=== PATIENT | female | born 1995 | race Caucasian/White ===

== ENCOUNTER 2018-01-04 07:36 | Emergency (ER) | END 2018-01-04 09:29 | disposition home or self-care (01) ==

== ENCOUNTER 2018-07-27 19:03 | Emergency (ER) | payer OTHER ==
[~2018-07-27] VITALS: Wt 81.3 kg
[~2018-07-27 19:03] MED LIST: AMOX1TAB9 PO; AZIT250T PO; CETI10TA34 PO; ERYT1OIN6 BOTH EYES; FLUT9.9S NASAL; GUAI5SYR2 PO; IBUP-1542 PO; PSEU120T12 PO
--- NOTE | 2018-07-27 20:39 | ERD ---
ER Documentation Chief Complaint Chief Complaint stuffy nose, chills, fever since last PM. tylenol 1300 HPI 23-year-old female with no significant past medical history presenting to the emergency department complaining of sore throat, nasal congestion and fever which began yesterday and is intermittent. She took Tylenol at home last at 1300 today with some relief. Symptoms are moderate to severe. Throat pain is worse when swallowing food or drinks. She reports history of throat infection in the past. She denies any sick contacts or abdominal pain or cough or other symptoms at this time. ROS All systems reviewed and are negative except as per history of present illness. Medications Home Meds Active Scripts Fluticasone Propionate (Flonase Allergy Relief) 9.9 Ml [place].susp, 1 SPRAY NASAL BID, #1 BOTTLE TO EACH NOSTRIL Prov:ADAMA MORRIS PA-C 01/04/18 Pseudoephedrine Hcl (Sudafed 12 Hour) 120 Mg Tablet.sa, 120 MG PO BID for 5 Days Prov:ADAMA MORRIS PA-C 01/04/18 Cetirizine Hcl* (Cetirizine Hcl*) 10 Mg Tab.chew, 10 MG PO DAILY, #30 TAB Prov:ADAMA MORRIS PA-C 01/04/18 Erythromycin Base (Erythromycin) 1 Gm Oint...g., 1 APPLIC BOTH EYES QID for 7 Days Prov:ADAMA MORRIS PA-C 01/04/18 Amoxicillin/Potassium Clav (Amox-Clav 500-125 mg Tablet) 500-125 mg Tab, 1 TAB PO BID for 14 Days, TAB Prov:ADAMA MORRIS PA-C 01/04/18 Guaifenesin-Dextromethorphan* (Robitussin* DM) 100MG/10MG/5ML Syrup, 10 ML PO Q6H PRN for COUGH for 5 Days, ML Prov:SANDRA GREENWOOD NP 04/03/15 Azithromycin* (Zithromax*) 250 Mg Tablet, 250 MG PO .MariPACK DIRECTED, #6 TAB TAKE 500 MG (2 TABS) THE FIRST DAY THEN 250 MG (1 TAB) DAYS 2-5 Prov:SANDRA GREENWOOD NP 2/3/16 Ibuprofen* (Motrin*) 600 Mg Tab, 600 MG PO Q6, #30 TAB Prov:DOC VEGA 03/05/15 Allergies Allergies: Coded Allergies: No Known Drug Allergies (Verified Allergy, 05/07/13) PMhx/Soc History of Surgery: No Anesthesia Reaction: No Hx Neurological Disorder: No Hx Respiratory Disorders: Yes (asthma) Hx Cardiac Disorders: No Hx Psychiatric Problems: No Hx Miscellaneous Medical Probl: No Hx Alcohol Use: No Hx Substance Use: No Hx Tobacco Use: No Smoking Status: Never smoker FmHx Family History: No diabetes Physical Exam Vitals Vital Signs Date Temp Pulse Resp B/P (MAP) Pulse Ox O2 O2 Flow FiO2 Time Delivery Rate 07/27/18 100.3 100 20 127/88 99 19:26 (101) Physical Exam Const: No acute distress Head: Atraumatic Eyes: Normal Conjunctiva ENT: Normal External Ears, Nose and Mouth. Bilateral tonsillar hypertrophy. Uvula is midline. Scant exudate noted to the right tonsil. Nares are congested. Tympanic membranes are normal in appearance bilaterally. Neck: Full range of motion. No meningismus. Resp: Clear to auscultation bilaterally Cardio: Regular rate and rhythm, no murmurs Skin: No petechiae or rashes Ext: No cyanosis, or edema Neur: Awake and alert Psych: Normal Mood and Affect Procedures/MDM 23-year-old female presenting to the emergency department with signs and symptoms consistent with pharyngitis, likely bacterial etiology. No evidence to suggest peritonsillar abscess, sepsis, meningitis, or other emergencies. Patient is nontoxic and well-appearing and she is stable and appropriate for discharge and further outpatient management with prescriptions. She was advised to have close follow-up with her primary care physician and return to the department immediately for any new or worsening or concerning symptoms. Patient was in agreement with the diagnosis, plan, need for follow-up, return precautions. All questions and concerns were addressed prior to discharge. Departure Diagnosis: Primary Impression: Acute pharyngitis Pharyngitis/tonsillitis etiology: unspecified etiology Qualified Codes: J02.9 - Acute pharyngitis, unspecified Condition: Fair Patient Instructions: Pharyngitis, Strep (Presumed) Referrals: [facility] Additional Instructions: Follow up with your PCP within the next 1-3 days for a repeat evaluation. If you require a referral to a specialist, your Primary Care Provider may be able to provide this for you. In most patient cases, a referral is not required. If you have further questions regarding this matter, please ask your Primary Care Prov ider. Return the the emergency department immediately if symptoms worsen or change. If you have any questions regarding medications, ask your pharmacist or us before you leave. If any adverse reactions, occur while taking your medications, discontinue the treatment and return to the emergency department immediately. If any new or worsening symptoms, uncontrolled fevers, or other unexplained symptoms occur, return to the emergency department immediately. Take your medications as directed, and complete the entire course of treatment. ANGELIQUE ATWOOD PA-C July 27, 2018 20:39
[2018-07-27] MEDS ORDERED: FLUT9.9S NASAL (20:41)
[2018-07-27] MEDS ORDERED: PHEN177S43 MT (20:41)
[2018-07-27] MEDS ORDERED: IBUP-1542 PO (20:41)
[2018-07-27] MEDS ORDERED: AMOX500C2 PO (20:41)
[2018-07-27 21:10] VITALS: BP 120/85; PULSE 93; RESP 20
== END 2018-07-27 21:10 | disposition home or self-care (01) ==
LOC: FTE 19:03
DX: J02.9 Acute pharyngitis, unspecified (principal); J45.909 Unspecified asthma, uncomplicated
CPT/HCPCS: 99283

== ENCOUNTER 2018-08-25 23:07 | Emergency (ER) | payer OTHER ==
[~2018-08-25] VITALS: Ht 152.4 cm; Wt 80.7 kg
[~2018-08-25 23:07] MED LIST changes: +AMOX500C2 PO; +PHEN177S43 MT
[2018-08-25 23:33] VITALS: BP 133/66; PULSE 76; RESP 18; Ht 152.4 cm; Wt 80.7 kg
[2018-08-26] MEDS ORDERED: IBUPROFEN 600 MG TAB PO ONE (01:30)
[2018-08-26] MEDS ORDERED: IBUP-1542 PO (02:39)
--- NOTE | 2018-08-26 02:43 | ERD ---
ER Documentation Chief Complaint Chief Complaint R pinky toe pain, redness, swelling from injury today HPI Patient is a 23-year-old female, no past medical history, presents the ER for concerns of right fifth digit toe pain and swelling after injuring it while patient was at an indoor playground. Patient states her toe got stuck between 2 mats. Patient states she is able to ambulate however her toe hurts. Patient denies any fevers or chills. Patient denies any previous fractures or dislocations. ROS All systems reviewed and are negative except as per history of present illness. Medications Home Meds Active Scripts Ibuprofen* (Motrin*) 600 Mg Tab, 600 MG PO Q6, #30 TAB Prov:LYNDSEY LOPEZ PA-C 08/26/18 Phenol* (Chloraseptic* [place]) 177 Ml [place].pump, 2 SPRAY MT Q2H PRN for SORE THROAT, #1 BOTTLE Prov:ANGELIQUE ATWOOD PA-C 07/27/18 Fluticasone Propionate (Flonase Allergy Relief) 9.9 Ml [place].susp, 1 SPRAY NASAL BID, #1 BOTTLE TO EACH NOSTRIL Prov:ANGELIQUE ATWOOD PA-C 07/27/18 Ibuprofen* (Motrin*) 600 Mg Tab, 600 MG PO Q6, #30 TAB Prov:ANGELIQUE ATWOOD PA-C 07/27/18 Amoxicillin* (Amoxicillin*) 500 Mg Cap, 500 MG PO TID for 10 Days, CAP Prov:ANGELIQUE ATWOOD PA-C 07/27/18 Fluticasone Propionate (Flonase Allergy Relief) 9.9 Ml [place].susp, 1 SPRAY NASAL BID, #1 BOTTLE TO EACH NOSTRIL Prov:ADAMA MORRIS PA-C 01/04/18 Pseudoephedrine Hcl (Sudafed 12 Hour) 120 Mg Tablet.sa, 120 MG PO BID for 5 Days Prov:ADAMA MORRIS PA-C 01/04/18 Cetirizine Hcl* (Cetirizine Hcl*) 10 Mg Tab.chew, 10 MG PO DAILY, #30 TAB Prov:ADAMA MORRIS PA-C 01/04/18 Erythromycin Base (Erythromycin) 1 Gm Oint...g., 1 APPLIC BOTH EYES QID for 7 Days Prov:ADAMA MORRIS PA-C 01/04/18 Amoxicillin/Potassium Clav (Amox-Clav 500-125 mg Tablet) 500-125 mg Tab, 1 TAB PO BID for 14 Days, TAB Prov:ADAMA MORRIS PA-C 01/04/18 Guaifenesin-Dextromethorphan* (Robitussin* DM) 100MG/10MG/5ML Syrup, 10 ML PO Q6H PRN for COUGH for 5 Days, ML Prov:SANDRA GREENWOOD NP 04/03/15 Azithromycin* (Zithromax*) 250 Mg Tablet, 250 MG PO .ZPACK DIRECTED, #6 TAB TAKE 500 MG (2 TABS) THE FIRST DAY THEN 250 MG (1 TAB) DAYS 2-5 Prov:SANDRA GREENWOOD NP 04/03/15 Ibuprofen* (Motrin*) 600 Mg Tab, 600 MG PO Q6, #30 TAB Prov:DOC VEGA 03/05/15 Allergies Allergies: Coded Allergies: No Known Drug Allergies (Verified Allergy, 05/07/13) PMhx/Soc History of Surgery: No Anesthesia Reaction: No Hx Neurological Disorder: No Hx Respiratory Disorders: Yes (asthma) Hx Cardiac Disorders: No Hx Psychiatric Problems: No Hx Miscellaneous Medical Probl: No Hx Alcohol Use: No Hx Substance Use: No Hx Tobacco Use: No FmHx Family History: No diabetes Physical Exam Vitals Vital Signs Date Temp Pulse Resp B/P (MAP) Pulse Ox O2 O2 Flow FiO2 Time Delivery Rate 08/25/18 98.0 76 18 133/66 98 23:33 (88) Physical Exam GENERAL: Well-developed, well-nourished female. Appears in no acute distress. HEAD: Normocephalic, atraumatic. EYES: Pupils are equally reactive bilaterally. EOMs grossly intact. No conjunctival erythema. NECK: Supple. No meningismus. Normal range of motion of the neck. EXTREMITIES: Equal pulses bilaterally. No peripheral clubbing, cyanosis or edema. No unilateral leg swelling. NEUROLOGIC: Alert and oriented. Moving all four extremities without any difficulty. Normal speech. Steady gait. SKIN: Normal color. Warm and dry. No rashes or lesions. RLE: Mild swelling and ecchymosis noted to the fifth digit. Tender to palpation throughout the fifth toe. Nontender to palpation of the fifth metatarsal, midfoot, lateral medial ankle. Sensation intact to light touch. Neurovascularly intact. (Able to plantarflex, dorsiflex, alo foot, invert foot, raise big toe.) 2+ DP and DT pulses. Results 24 hrs Current Medications Medications Dose Sig/Sebastian Start Time Status Last (Trade) Ordered Route PRN Stop Time Admin Dose Reason Admin Ibuprofen 600 mg ONCE ONCE 08/26/18 DC 08/26/18 (Motrin) PO 01:30 01:37 08/26/18 01:31 Procedures/MDM ED COURSE: The patient was stable throughout ED course. I kept the patient and/or family informed of laboratory and diagnostic imaging results throughout the ED course. DIAGNOSTIC IMAGING: Read by radiologist. Patient: LALITHA TEJADA : 1995 Age: 23 Sex: F MR #: [id number] DOS: 08/26/18 0124 Ordering MD: LYNDSEY LOPEZ PA-C Location: [facility] Room/Bed: PROCEDURE: XR Foot Right 3 View (Routine) CLINICAL INDICATION: Pain. Trauma. Fifth toe pain. TECHNIQUE: VIEWS: 3 IMAGES: 3 COMPARISON: None. FINDINGS: OSSEOUS STRUCTURES Fractures: None. JOINTS Joint Space(s): Preserved. IMPRESSION: 1. No acute osseous abnormalities. RPTAT:[facility] Physician [employer] Date Time Electronically viewed and signed by Megan Emery Physician on 08/26/2018 02:36 GT/ CC: LYNDSEY LOPEZ PA-C [id number] MEDICAL DECISION MAKING: This is a 23-year-old female presents the ER for concerns of right fifth digit toe pain.. Vital signs were reviewed. Patient was afebrile. X-ray imaging was negative for fracture dislocatio. Patient likely has a toe sprain. Low suspicion forankle dislocation, tibia fracture, fibula fracture, ankle fracture, tarsal bone fracture, metatarsal fracture, phalangeal fracture, stress fracture, lisfranc injury, gout, septic joint, reactive arthritis, psoriatic arthritis, DVT, compartment syndrome, plantar fasciitis, diabetic neuropathy or pes planus. At this time, unable to rule out any tendon and ligament injuries. PRESCRIPTIONS: Ibuprofen DISCHARGE: At this time, patient is stable for discharge and outpatient management. I have instructed the patient to follow-up with his/her primary care physician in 1-2 days. I have discussed with the patient the possibility of needing to see an recreation specialist for further workup and imaging if the pain persists. I have instructed the patient to promptly return to the ER for any new or worsening symptoms including increased pain, swelling, redness, warmth or fever. The patient and/or family expressed understanding of and agreement with this plan. All questions were answered. Home care instructions were provided. Disclaimer: Inadvertent spelling and grammatical errors are likely due to EHR/dictation software use and do not reflect on the overall quality of patient care. Also, please note that the electronic time recorded on this note does not necessarily reflect the actual time of the patient encounter. Departure Diagnosis: Primary Impression: Toe injury Encounter type: initial encounter Laterality: unspecified laterality Qualified Codes: S99.929A - Unspecified injury of unspecified foot, initial encounter Condition: Fair Patient Instructions: Sprain Toe Referrals: [facility] YOU HAVE RECEIVED A MEDICAL SCREENING EXAM AND THE RESULTS INDICATE THAT YOU DO NOT HAVE A CONDITION THAT REQUIRES URGENT TREATMENT IN THE EMERGENCY DEPARTMENT. FURTHER EVALUATION AND TREATMENT OF YOUR CONDITION CAN WAIT UNTIL YOU ARE SEEN IN YOUR DOCTORS OFFICE WITHIN THE NEXT 1-2 DAYS. IT IS YOUR RESPONSIBILITY TO MAKE AN APPOINTMENT FOR FOLOW-UP CARE. IF YOU HAVE A PRIMARY DOCTOR --you should call your primary doctor and schedule an appointment IF YOU DO NOT HAVE A PRIMARY DOCTOR YOU CAN CALL OUR PHYSICIAN REFERRAL HOTLINE AT IF YOU CAN NOT AFFORD TO SEE A PHYSICIAN YOU CAN CHOSE FROM THE FOLLOWING [facility] CLINICS [facility] [address] [facility] [address] [facility] [facility] [address] [facility] [address] [facility] [address] [facility]. [facility] [address] [facility]. [facility] YOU HAVE RECEIVED A MEDICAL SCREENING EXAM AND THE RESULTS INDICATE THAT YOU DO NOT HAVE A CONDITION THAT REQUIRES URGENT TREATMENT IN THE EMERGENCY DEPARTMENT. FURTHER EVALUATION AND TREATMENT OF YOUR CONDITION CAN WAIT UNTIL YOU ARE SEEN IN YOUR DOCTORS OFFICE WITHIN THE NEXT 1-2 DAYS. IT IS YOUR RESPONSIBILITY TO MAKE AN APPOINTMENT FOR FOLOW-UP CARE. IF YOU HAVE A PRIMARY DOCTOR --you should call your primary doctor and schedule and appointment IF YOU DO NOT HAVE A PRIMARY DOCTOR YOU CAN CALL OUR PHYSICIAN REFERRAL HOTLINE AT . IF YOU CAN NOT AFFORD TO SEE A PHYSICIAN YOU CAN CHOSE FROM THE FOLLOWING [facility] INSTITUTIONS: [facility] [place] [address] [place] [address] [facility] [address] [place], [place] [id number] [place] [address] [address] [place] [address] Additional Instructions: Call your primary care doctor TOMORROW for an appointment during the next 1-2 days.See the doctor sooner or return here if your condition worsens before your appointment time. LYNDSEY LOPEZ PA-C Aug 26, 2018 02:43
== END 2018-08-26 02:46 | disposition home or self-care (01) ==
LOC: FTE 23:07
DX: S90.121A Contusion of right lesser toe(s) without damage to nail, initial encounter (principal); J45.909 Unspecified asthma, uncomplicated; W23.1XXA Caught, crushed, jammed, or pinched between stationary objects, initial encounter; Y92.89 Other specified places as the place of occurrence of the external cause
CPT/HCPCS: 73630; Z7502; Z7610